=== PATIENT | female | born 1950 | race Caucasian/White ===

== ENCOUNTER 2023-11-10 10:38 | Outpatient (AMB) | payer MEDICARE, OTHER, SELFPAY ==
--- NOTE | 2023-11-10 10:49 | MHC.PC.OV ---
Vital Signs 11/10/23 10:53 Height 5 ft 3 in Weight 126 lb 8 oz BMI 22.4 BP 136/74 Blood Pressure Location Lt brachial Position Sitting Respiration 16 Pulse 84 Pulse Source Pulse Oximeter Temp 98 F Temp Source Oral Pulse Oximetry (%) 95 Oxygen Delivery Method Room Air Intake Visit Reasons: Ep/ heaviness in chest, throat/nose/ raw/ fatigued Intake Note: Heaviness in chest, nasal congestion, fatigue. sxs for 13 days. No testing done. Allergies tolmetin [From Tolectin] Allergy (Unknown, Verified 11/10/23 11:33) Hives Medication List - Last Reconciled 11/10/23 by Sil Harrell, EMISSIONS TESTING TECHNICIAN- cholecalciferol (vitamin D3) 25 mcg PO DAILY cyclosporine 0.05% (Restasis) drps ophthalmic (eye) BID Tobacco use date assessed: 11/10/23 HPI HPI Comments History of Present Illness Details 73-year-old female here today with complaints of raw sensation in her sinuses and back of throat associated with heaviness in chest. She reports that she has been sick for 13 days after exposure to her 4-month-old grandson who had a febrile URI. Her symptoms were initially sore throat, swollen glands and severe fatigue. Since onset these symptoms have resolved with use of DayQuil and NyQuil. 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 Denies fever, chills, shortness of breath, trouble swallowing. Awake alert NAD Sclera and conjunctiva clear bilat Nares patent, turbinates within normal limits, no sinus tenderness with palpation bilat TM intact and clear bilat, very trace fluid behind bilat TMs MMM, pharynx WNL RRR LS CTAB Plan: Reassurance offered today. However given the sinus complaints that started 13 days after an upper respiratory illness it could be that she does have an acute bacterial sinusitis however she presents well today. Given the holiday weekend I have sent in a prescription for Augmentin 1 tab p.o. b.i.d. x7 days. advised patient to only take this should she develop a fever, worsening of symptoms. Otherwise she should fully resolve without any further intervention. I will see her back in 1 week to follow up on this as well as to establish care. Sooner if needed. PFSH Social History Patient Tobacco Use Status: Never used Tobacco Review of Systems Const All systems reviewed & are unremarkable except as noted in HPI and below Physical exam (Primary Care) Vital Signs: Last Vital Signs Temp 98 F 11/10/23 10:53 Pulse 84 11/10/23 10:53 Resp 16 11/10/23 10:53 BP 136/74 11/10/23 10:53 Pulse Ox 95 11/10/23 10:53 Oxygen Delivery Method Room Air 11/10/23 10:53 BMI result Body Mass Index 22.4 Tobacco/Smoking Status: Tobacco use Status Tobacco use date assessed 11/10/23 11/10/23 10:57 Patient Tobacco Use Status Never used Tobacco 11/10/23 10:57 Assessment and Plan Assessment & Plan (1) URI (upper respiratory infection): Code(s): J06.9 - Acute upper respiratory infection, unspecified Qualifiers: URI type: unspecified URI Qualified Code(s): J06.9 - Acute upper respiratory infection, unspecified Medications: New amoxicillin-pot clavulanate 500-125 mg 1 tab PO BID 7 days 14 tabs 0RF Coding Level of Care Code Est Pt Level 3 (05480) Diagnoses Upper respiratory tract infection, unspecified type J06.9 URI type: unspecified URI
[2023-11-10 10:53] VITALS: BP 136/74; PULSE 84; RESP 16; TEMP 36.6; O2SAT 95; BMI 22.4
== END 2023-11-10 11:47 | disposition home or self-care (01) ==
PROVIDERS: PCP Internal Medicine; Visit Provider Nurse Practitioner Family
DX: J06.9 Acute upper respiratory infection, unspecified (principal)
CPT/HCPCS: 99213

== ENCOUNTER 2023-11-19 10:19 | Outpatient (AMB) | payer MEDICARE, OTHER, SELFPAY ==
--- NOTE | 2023-11-19 10:26 | A.OFFPC_ITS ---
Vital Signs 11/19/23 10:35 Weight 126 lb BP 108/64 Blood Pressure Location Lt brachial Position Sitting Respiration 16 Pulse 80 Pulse Source Pulse Oximeter Temp 97.8 F Temp Source Temporal Artery Scan Pulse Oximetry (%) 97 Oxygen Delivery Method Room Air Intake Visit Reasons: est care/ follow up walk in Intake Note: patient here for follow up and to establish care. Assistant Technician Required: No Is last menstrual period known: No Post menopausal: No Patient : No Allergies tolmetin [From Tolectin] Allergy (Unknown, Verified 11/19/23 13:52) Hives Medication List - Last Reconciled 11/19/23 by iSl Harrell, CONFERENCE AND EVENT ORGANISER- calcium citrate-vitamin D3 315 mg-6.25 mcg (250 unit) (Citracal + Vitamin D Maximum) 2 tabs PO DAILY cholecalciferol (vitamin D3) 25 mcg PO DAILY cyclosporine 0.05% (Restasis) drps ophthalmic (eye) BID Tobacco use date assessed: 11/10/23 Fall risk assessment: 1 Fall in past year Last assessed Fall Risk: 11/19/23 Dental Screening Dental Screen Date: 11/19/23 Did you have a dental visit in the last 12 months?: Yes Did you have a dental problem in the last 6 months where you did not have access to dental care?: No Was dental information given to patient?: Patient has dentist HPI HPI Comments History of Present Illness Details 73 y/o F with osteopenia, chronic post n devon drip, prolapsed bladder s/p cataract removal bilat, tonsillectomy, parathyroidectomy 2008, bilat meniscus repair Social: Retired teacher Health Maintenance: DEXA 1-2 years ago @ [facility] [place] * Mammo Colon Pap Specialists: Endo - cleared for f/u @ [facility] [place] [facility] Here today to establish care. I do not have any medical records as of this time. Release of information was signed today. Coming from [facility] practice. I met her initially about 1 week ago in the walk-in for complaints of a URI. She was given antibiotics to use only as needed. She reports that she did not need to use the antibiotics and then all of her symptoms recovered within 24 hours 100%. Was using a pessary for prolapsed bladder however this caused pain therefore she is stopped using it. Denies any active issues with prolapsed bladder. Take Ca and Vit D s/p parathyroidectomy; Endo encouraged tx for osteopenia, however she declined treatment, now SOAP MAKER will be managing this. Frayed rotator cuff L, started around Xmas time. rec'd cortisone shot with + effect. Still has ache and limited ROM @ times. Denies overt injury Chronic insomnia, tried trazadone w/o relief. Able to fall asleep. 3-4 nights out of 7 wakes for 2 hours and is able to fall back to sleep. Nothing overt causing her to wake. Emil could feel self getting sleepy after taking but was still waking in the middle of the night. Has not tried any other sleep aides; requesting ativan , as a friend uses this. Uses childrens benadryl 1/2 tab once per month to help chronic PND. Did trial flonase at one point. Did trial claritin at one time, made her spacy. In regards to mood, she reports that her mood overall is stable. She does have a son who is 30 years old who has bipolar disorder that is living with her. He was diagnosed about 12 years ago. She does admit a lot of worry and concern about her son. She does wonder if this plays any part into her insomnia. Exam: Awake alert NAD MMM Thyroid nonpalpable RRR LS CTAB No edema BLE Mood and affect appropriate Plan: Routine screening labs ordered today. Please get it done before the next office visit. Tried to use melatonin extended release 4-8 mg as needed to help the insomnia. Discouraged use of Ativan due to the Beers criteria. Could also consider mood playing a part in the insomnia and we can further investigate this if the melatonin is not effective for you. Continue calcium and vitamin-D supplements Return to office in a few months for routine follow up, sooner as needed. Message sent to office staff to try to obtain medical records. PFSH Family History Son FH: mental illness Social History Housing: House Patient Tobacco Use Status: Never used Tobacco e-Cigarette/Vaping Use: Never Used service: No Current occupational status: retired Current occupational exposures/hazards: No Cognitive needs: No Hearing needs: No Vision needs: No Questionnaire PHQ-9 Over the last 2 weeks, how often have you been bothered by any of the following problems? 1. Little interest or pleasure in doing things: not at all 2. Feeling down, depressed, or hopeless: not at all 3. Trouble falling or staying asleep, or sleeping too much: not at all 4. Feeling tired or having little energy: not at all 5. Poor appetite or overeating: not at all 6. Feeling bad about yourself - or that you are a failure or have let yourself or your family down: not at all 7. Trouble concentrating on things, such as reading the newspaper or watching television: not at all 8. Moving or speaking so slowly that other people could have noticed. Or the opposite - being so fidgety or restless that you have been moving around a lot more than usual: not at all 9. Thoughts that you would be better off or of hurting yourself in some way: not at all Total score: 0 Depression Screening Interpretation: Negative Depression Screening Done: Yes Source: Developed by Drs. Laz Chou, Benita Lugo, Sebastian Tinsley and colleagues, with an educational zaira from [employer]. Thrive Questionnaire Date Thrive assessed: 11/19/23 I am a: Patient What is your living situation today?: I have a steady place to live Within the past 12 months, did the food you bought not last and you didn't have the money to get more?: Never true Within the past 12 months, did you worry whether your food would run out before you got money to buy more?: Never true Do you have trouble paying for medicines?: No Do you have trouble getting transportation to medical appointments?: No Do you have trouble paying your heating and electricity bill?: No Do you have trouble taking care of your child, family member or friend?: No Do you have trouble with day-to-day activities such as bathing, preparing meals, shopping, managing finances, etc.?: No Are you currently unemployed and looking for a job?: No Are you interested in more education?: No Please select the resources that you would like help with: None Currently or been in a relationship where the following occur: No concerns reported THRIVE Score: 0 AUDIT C Alcohol Use Questionnaire (AUDIT-C) 1. How often do you have a drink containing alcohol?: Monthly or less 2. How many drinks containing alcohol do you have on a typical day when you are drinking?: 1 or 2 3. How often do you have six or more drinks on one occasion?: Never Total Score: 1 Score Reviewed/Action Taken: Yes SERGE-7 AMB Questionnaire SERGE-7 Date SERGE - 7 assessed: 11/19/23 Feeling nervous, anxious, or on edge: 0 = Not at all Not being able to stop or control worryin = Not at all Worrying too much about different things: 0 = Not at all Trouble relaxin = Not at all Being so restless that it is hard to sit still: 0 = Not at all Becoming easily annoyed or irritable: 0 = Not at all Feeling afraid as if something awful might happen: 0 = Not at all Total SERGE-7 score (0-4 normal; 5-9 mild; 10-14 moderate; 15-21 severe): 0 Source: Developed by Drs. Laz Chou, Benita Lugo, Sebastian Tinsley and colleagues, with an educational zaira from [employer]. SERGE-7 Assessment Billing SERGE-7 Assessment Tool: SERGE-7 Assessment 73824 Physical exam (Primary Care) Vital Signs: Last Vital Signs Temp 97.8 F 11/19/23 10:35 Pulse 80 11/19/23 10:35 Resp 16 11/19/23 10:35 BP 108/64 11/19/23 10:35 Pulse Ox 97 11/19/23 10:35 Oxygen Delivery Method Room Air 11/19/23 10:35 Tobacco/Smoking Status: Tobacco use Status Tobacco use date assessed 11/10/23 11/19/23 10:28 Patient Tobacco Use Status Never used Tobacco 11/19/23 10:28 e-Cigarette/Vaping Use Never Used 11/19/23 10:37 Depression Screening Interpretation: Negative Currently or been in a relationship where the following occur: No concerns reported Assessment and Plan Assessment & Plan (1) Osteopenia: Code(s): M85.80 - Other specified disorders of bone density and structure, unspecified site Qualifiers: Osteopenia location: unspecified Qualified Code(s): M85.80 - Other specified disorders of bone density and structure, unspecified site (2) S/P parathyroidectomy: Code(s): Z98.890 - Other specified postprocedural states; Z90.89 - Acquired absence of other organs (3) Insomnia: Code(s): G47.00 - Insomnia, unspecified Qualifiers: Insomnia type: unspecified Qualified Code(s): G47.00 - Insomnia, unspecified (4) Bladder prolapse, female, acquired: Code(s): N81.10 - Cystocele, unspecified (5) Post-nasal drip: Code(s): R09.82 - Postnasal drip Plan This note is constructed using voice recognition software. While every effort has been made to ensure accuracy in senior sales engineer, still errors may have been included Sometimes, these errors may affect the content or meaning of the given sentence . Total time spent caring for the patient today was 45 minutes. This includes time spent before the visit reviewing the chart, time spent during the visit, and time spent after the visit on documentation Orders: Orders Comprehensive Met. Panel Today G47.00 - Insomnia, unspecified, M85.80 - Other specified disorders of bone density and structure, unspecified site, Z90.89 - Acquired absence of other organs, Z98.890 - Other specified postprocedural states Lipid Panel Today G47.00 - Insomnia, unspecified, M85.80 - Other specified disorders of bone density and structure, unspecified site, Z90.89 - Acquired absence of other organs, Z98.890 - Other specified postprocedural states Microalbumin, Random (w Creat) Today G47.00 - Insomnia, unspecified, M85.80 - Other specified disorders of bone density and structure, unspecified site, Z90.89 - Acquired absence of other organs, Z98.890 - Other specified postprocedural states Vitamin D 1,25 dihydroxy Today G47.00 - Insomnia, unspecified, M85.80 - Other specified disorders of bone density and structure, unspecified site, Z90.89 - Acquired absence of other organs, Z98.890 - Other specified postprocedural states Complete Blood Count no Diff Today G47.00 - Insomnia, unspecified, M85.80 - Other specified disorders of bone density and structure, unspecified site, Z90.89 - Acquired absence of other organs, Z98.890 - Other specified postprocedural states IRON PROFILE Today G47.00 - Insomnia, unspecified, M85.80 - Other specified disorders of bone density and structure, unspecified site, Z90.89 - Acquired absence of other organs, Z98.890 - Other specified postprocedural states Hemoglobin A1c Today G47.00 - Insomnia, unspecified, M85.80 - Other specified disorders of bone density and structure, unspecified site, Z90.89 - Acquired absence of other organs, Z98.890 - Other specified postprocedural states TSH reflex Free T4 Today G47.00 - Insomnia, unspecified, M85.80 - Other specified disorders of bone density and structure, unspecified site, Z90.89 - Acquired absence of other organs, Z98.890 - Other specified postprocedural states Vitamin B12 and Folate Today G47.00 - Insomnia, unspecified, M85.80 - Other specified disorders of bone density and structure, unspecified site, Z90.89 - Acquired absence of other organs, Z98.890 - Other specified postprocedural states Patient Instructions: Use Melatonin ER 4-8 mg daily at night to help sleep, buy online. Coding Level of Care Code New Pt Level 4 (70984) Complex EM visit Add On G2211 Diagnoses Osteopenia, unspecified location M85.80 Osteopenia location: unspecified S/P parathyroidectomy Z98.890; Z90.89 Insomnia, unspecified type G47.00 Insomnia type: unspecified Bladder prolapse, female, acquired N81.10 Post-nasal drip R09.82 Additional Codes SERGE-7 Assessment Billing - SERGE-7 Assessment Tool: SERGE-7 Assessment [id number] ([id number])
[2023-11-19 10:35] VITALS: BP 108/64; PULSE 80; RESP 16; TEMP 36.6; O2SAT 97
== END 2023-11-19 11:29 | disposition home or self-care (01) ==
PROVIDERS: PCP Nurse Practitioner Family; Visit Provider Nurse Practitioner Family
DX: M85.80 Other specified disorders of bone density and structure, unspecified site (principal); Z98.890 Other specified postprocedural states; Z90.89 Acquired absence of other organs; G47.00 Insomnia, unspecified; N81.10 Cystocele, unspecified; R09.82 Postnasal drip
CPT/HCPCS: 99215; G2211

== ENCOUNTER 2024-01-28 08:23 | Outpatient (REF) | payer MEDICARE, OTHER, SELFPAY ==
[2024-01-28 11:47] LABS: Estimated Average Glucose 108 mg/dL; Hemoglobin A1c % 5.4 % (<6.0)
[2024-01-28 11:50] LABS: Hematocrit 38.6 % (37.0-47.0); Hemoglobin 13.1 g/dl (12.0-16.0); Mean Corpuscular HGB Conc 33.9 g/dl (31.0-35.0); Mean Corpuscular Hemoglobin 30.4 pg (27.0-33.0); Mean Corpuscular Volume 89.6 fL (80.0-98.0); Mean Platelet Volume 9.9 fL (9.4-12.3); Platelet Count 237 X10*3/uL (160-400); Red Blood Count 4.31 X10*6/uL (4.20-5.50); Red Cell Distribution Width 12.3 % (11.0-16.0); White Blood Count 5.6 X10*3/uL (4.8-10.8)
[2024-01-28 12:22] LABS: Creatinine Urine 89.05 mg/dL; Microalbum/Creatinine Ratio Ur 10.1 ug/mg cr (<30)
[2024-01-28 12:27] LABS: Alanine Aminotransferase 10 U/L (0-31); Albumin Level 4.2 g/dL (3.5-5.0); Alkaline Phosphatase 45 U/L (39-117); Anion Gap 10 (12-20); Aspartate Amino Transferase 14 U/L (5-31); Bilirubin Total 0.4 mg/dL (0.0-1.0); Blood Urea Nitrogen 22 mg/dL (9-16); Carbon Dioxide 28 mmol/L (22-29); Chloride 107 mmol/L (96-108); Cholesterol 199 mg/dL (<200); Estimated Glomerular Filt Rate > 60; Folate 5.8 ng/mL (> or = 4.0); Glucose Random 97 mg/dL (60-115); HDL Cholesterol 70 mg/dL (>40); Iron 94 mcg/dL (30-160); LDL Cholesterol Calculated 115 mg/dL (<100); Percent Iron Saturation 34 % (15-50); Potassium 4.2 mmol/L (3.3-5.1); Sodium 141 mmol/L (135-145); Total Iron Binding Capacity 280 mcg/dL (228-428); Total Protein 6.8 g/dL (6.5-8.0); Triglycerides 70 mg/dL (<150); Unsaturated Iron Binding 186 ug/dL; Vitamin B12 299 pg/mL (200-900)
[2024-01-28 12:44] LABS: TSH reflex Free T4 1.97 uIU/mL (0.32-4.0)
[2024-02-02 01:24] LABS: VITAMIN D (1,25 OH) D3 44 pg/mL; Vit D (1,25-Dihydroxy) Total 44 pg/mL (18-72); Vitamin D (1,25 OH) D2 <8 pg/mL
== END 2024-01-28 08:24 | disposition home or self-care (01) ==
LOC: HO.WFDLDS 08:23
PROVIDERS: Visit Provider Nurse Practitioner Family
DX: M85.80 Other specified disorders of bone density and structure, unspecified site (principal); Z98.890 Other specified postprocedural states; Z90.89 Acquired absence of other organs; G47.00 Insomnia, unspecified; Z13.1 Encounter for screening for diabetes mellitus
CPT/HCPCS: 36415; 80053; 80061; 82043; 82570; 82607; 82652; 82746; 83036; 83540; 84443; 85027

== ENCOUNTER 2024-02-03 08:57 | Outpatient (AMB) | payer MEDICARE, OTHER, SELFPAY ==
--- NOTE | 2024-02-03 09:13 | A.OFFPC_ITS ---
Vital Signs 02/03/24 09:18 Height 5 ft 3 in Weight 126 lb 4 oz BMI 22.4 BP 112/60 Blood Pressure Location Lt brachial Position Sitting Respiration 13 Pulse 94 Pulse Source Pulse Oximeter Temp 97.9 F Temp Source Oral Pulse Oximetry (%) 97 Oxygen Delivery Method Room Air Intake Visit Reasons: Fall fu labs and insomnia Intake Note: follow up on labs Allergies tolmetin [From Tolectin] Allergy (Unknown, Verified 02/03/24 09:45) Hives Medication List - Last Reconciled 02/03/24 by Sil Harrell, [facility]- calcium citrate-vitamin D3 315 mg-6.25 mcg (250 unit) (Citracal + Vitamin D Max imum) 2 tabs PO DAILY cholecalciferol (vitamin D3) 25 mcg PO DAILY cyclosporine 0.05% (Restasis) drps ophthalmic (eye) BID melatonin ER 5 mg PO BEDTIME Tobacco use date assessed: 11/10/23 Dental Screening Dental Screen Date: 11/19/23 HPI HPI Comments History of Present Illness Details 73 y/o F with osteopenia, chronic post n devon drip, prolapsed bladder, insomnia s/p cataract removal bilat, tonsillectomy, parathyroidectomy 2008, bilat meniscus repair Social: Retired teacher Health Maintenance: Bone density done 02/03/2022 showing osteoporosis. Of note she was on bisphosphonates for 8 years. Completing in 2011. Mammogram 04/06/23 which was normal;she did have a 0.7 cm simple cyst at the 6 o'clock position in the left breast 5 cm from the nipple in 2019. ObGyn will order 2023 Colonoscopy did show colon polyp as well as diverticulosis and hemorrhoids. This was done 06/25/2021. Repeat in 5 years recommended (2026) 2023 Flu & Covid will get; has already h ad Shingles, RSV, PCV Specialists: Endo - cleared for f/u @ [facility] [place] TECHN[employer]GRAM [employer]GER [facility] Here today for routine fu Insomnia: melatonin ER did not help. Still woke up 2am, felt relaxed but did not fall asleep. Is sleeping great however at this time, she did under go some stress. Dtr asked her to try CBD. Took 1 every night for 3 nights. She had horrible gastric distress. Googled s/e and that is #1 side effect. So stopped. Has tried other sleep aide in the past and did not work, unsure what it was, other than trazodone. Willing to try a sleep aide, prefers PRN Due for DEXA - ordered today, to be done at [facility]. I cc'd results to TECHNICAL PROGRAM MANAGER Left shoulder pain free, thinks holding her grandchild helped strengthen her arms. About 17lbs reviewed w/ her today: Labs from 01/28/2024 show a normal CBC normal electrolytes, renal function hemoglobin A1c 5.4%, iron profile, normal LFTs, total cholesterol of 199 LDL 115, triglycerides 70, HDL 70, B12 on the low end of normal 299, vitamin-D normal , normal TSH and folate, normal urine microalbumin creatinine ratio Exam: Awake alert NAD MMM Thyroid nonpalpable RRR LS CTAB No edema BLE Mood and affect appropriate Plan Add b12 1000 mcg Stop melatonin ER Start doxepin 3mg po QHS prn insomnia. Can titrate to 6mg if not effective. Asked she let me know. Cont all other meds Cont care w/ Team FU in May for sAWV, sooner prn This note is constructed using voice recognition software. While every effort has been made to ensure accuracy in cooperative education director, still errors may have been included Sometimes, these errors may affect the content or meaning of the given sentence . Total time spent caring for the patient today was 45 minutes. This includes time spent before the visit reviewing the chart, time spent during the visit, and time spent after the visit on documentation PFSH Family History Son FH: mental illness Social History Housing: House Patient Tobacco Use Status: Never used Tobacco e-Cigarette/Vaping Use: Never Used service: No Current occupational status: retired Current occupational exposures/hazards: No Cognitive needs: No Hearing needs: No Vision needs: No Questionnaire Thrive Questionnaire Date Thrive assessed: 11/19/23 AUDIT C Alcohol Use Questionnaire (AUDIT-C) 2. How many drinks containing alcohol do you have on a typical day when you are drinking?: 1 or 2 3. How often do you have six or more drinks on one occasion?: Never Total Score: 0 SERGE-7 AMB Questionnaire SERGE-7 Date SERGE - 7 assessed: 11/19/23 Source: Developed by DrsDarnell Chou, Benita Lugo, Sebastian Tinsley and colleagues, with an educational zaira from [employer]. Physical exam (Primary Care) Vital Signs: Last Vital Signs Temp 97.9 F 02/03/24 09:18 Pulse 94 02/03/24 09:18 Resp 13 02/03/24 09:18 BP 112/60 02/03/24 09:18 Pulse Ox 97 02/03/24 09:18 Oxygen Delivery Method Room Air 02/03/24 09:18 BMI result Body Mass Index 22.4 Tobacco/Smoking Status: Tobacco use Status Tobacco use date assessed 11/10/23 02/03/24 09:14 Patient Tobacco Use Status Never used Tobacco 02/03/24 09:14 e-Cigarette/Vaping Use Never Used 02/03/24 09:14 Thrive Assessment: Date of Thrive Assessment Date Thrive assessed 11/19/23 02/03/24 09:14 Assessment and Plan Assessment & Plan (1) Insomnia: Code(s): G47.00 - Insomnia, unspecified Qualifiers: Insomnia type: unspecified Qualified Code(s): G47.00 - Insomnia, unspecified (2) S/P parathyroidectomy: Code(s): Z98.890 - Other specified postprocedural states; Z90.89 - Acquired absence of other organs (3) Osteoporosis: Code(s): M81.0 - Age-related osteoporosis without current pathological fracture Qualifiers: Osteoporosis type: age-related Presence of current pathological fracture: without current pathological fracture Qualified Code(s): M81.0 - Age- related osteoporosis without current pathological fracture Orders: Orders XR DEXA axial skeleton Today M81.0 - Age-related osteoporosis without current pathological fracture, Z90.89 - Acquired absence of other organs, Z98.890 - Other specified postprocedural states Medications: New mecobalamin (vitamin B12) (B12 Active) 1,000 mcg PO DAILY 90 tabs 3RF doxepin Take within 30 minutes of bedtime, avoid meals within 3 hours of use for improved effectiveness 3 mg PO BEDTIME PRN 30 tabs 0RF sleep Coding Level of Care Code Est Pt Level 5 (04834) Complex EM visit Add On G2211 Diagnoses Insomnia, unspecified type G47.00 Insomnia type: unspecified S/P parathyroidectomy Z98.890; Z90.89 Age-related osteoporosis without current pathological fracture M81.0 Osteoporosis type: age-related Presence of current pathological fracture: without current pathological fracture
[2024-02-03 09:18] VITALS: BP 112/60; PULSE 94; RESP 13; TEMP 36.6; O2SAT 97; BMI 22.4
== END 2024-02-03 10:05 | disposition home or self-care (01) ==
PROVIDERS: PCP Nurse Practitioner Family; Visit Provider Nurse Practitioner Family
DX: G47.00 Insomnia, unspecified (principal); Z98.890 Other specified postprocedural states; Z90.89 Acquired absence of other organs; M81.0 Age-related osteoporosis without current pathological fracture

== ENCOUNTER → 2024-02-03 08:57 | Outpatient (BNVA) | payer MEDICARE, OTHER, SELFPAY | PROVIDERS: PCP Nurse Practitioner Family; Visit Provider Nurse Practitioner Family | DX: G47.00 Insomnia, unspecified (principal); M81.0 Age-related osteoporosis without current pathological fracture; Z98.890 Other specified postprocedural states; Z90.89 Acquired absence of other organs | CPT/HCPCS: 99212 ==

== ENCOUNTER 2024-05-31 08:03 | Outpatient (REF) | payer MEDICARE, OTHER, SELFPAY ==
[2024-05-31 11:49] LABS: Estimated Average Glucose 108 mg/dL; Hemoglobin A1C 125.4774 umol/L; Hemoglobin A1c % 5.4 % (<6.0); Total Hemoglobin (HGBA1C) 3495.3597 umol/L
[2024-05-31 12:09] LABS: Alanine Aminotransferase 12 U/L (0-31); Albumin Level 4.4 g/dL (3.5-5.0); Alkaline Phosphatase 49 U/L (39-117); Anion Gap 11 (12-20); Aspartate Amino Transferase 21 U/L (5-31); Bilirubin Total 0.5 mg/dL (0.0-1.0); Blood Urea Nitrogen 16 mg/dL (9-16); Calcium 9.6 mg/dL (8.4-10.2); Carbon Dioxide 30 mmol/L (22-29); Chloride 104 mmol/L (96-108); Cholesterol 197 mg/dL (<200); Estimated Glomerular Filt Rate > 60; Glucose Fasting 95 mg/dL (60-99); HDL Cholesterol 64 mg/dL (>40); LDL Cholesterol Calculated 122 mg/dL (<100); Sodium 141 mmol/L (135-145); Total Protein 7.2 g/dL (6.5-8.0); Triglycerides 59 mg/dL (<150)
[2024-05-31 12:14] LABS: TSH reflex Free T4 2.05 uIU/mL (0.32-4.0); Vitamin D 25-OH Total 107.1 ng/mL (>30)
[2024-05-31 12:22] LABS: Creatinine Urine 105.66 mg/dL; Microalbum/Creatinine Ratio Ur 6.6 ug/mg cr (<30)
== END 2024-05-31 08:04 | disposition home or self-care (01) ==
LOC: HO.WFDLDS 08:03
PROVIDERS: Visit Provider Nurse Practitioner Family
DX: Z00.00 Encounter for general adult medical examination without abnormal findings (principal); M81.0 Age-related osteoporosis without current pathological fracture; Z13.1 Encounter for screening for diabetes mellitus
CPT/HCPCS: 36415; 80053; 80061; 82043; 82306; 82570; 83036; 84443

== ENCOUNTER 2024-06-07 07:52 | Outpatient (AMB) | payer MEDICARE, OTHER, SELFPAY ==
--- NOTE | 2024-06-07 07:56 | AM.OFFVISMDC ---
Intake Vital Signs 06/07/24 08:04 Height 5 ft 3 in Weight 125 lb 4 oz BMI 22.2 BP 122/72 Blood Pressure Location Lt brachial Position Sitting Respiration 12 Pulse 85 Pulse Source Pulse Oximeter Temp 96.9 F Temp Source Oral Pulse Oximetry (%) 95 Oxygen Delivery Method Room Air Intake Visit Reasons: AWV MAY 2024 45 MIN Intake Note: annual awv Net Developer Consultant Required: No Allergies tolmetin [From Tolectin] Allergy (Unknown, Verified 06/07/24 08:23) Hives Medication List - Last Reconciled 06/07/24 by Sil Harrell, [facility]- calcium citrate-vitamin D3 315 mg-6.25 mcg (250 unit) (Citracal + Vitamin D Maximum) 2 tabs PO DAILY cholecalciferol (vitamin D3) 25 mcg PO DAILY cyclosporine 0.05% (Restasis) drps ophthalmic (eye) BID doxepin 3 mg PO BEDTIME PRN mecobalamin (vitamin B12) (B12 Active) 1,000 mcg PO DAILY risedronate mg PO Do you need a note to return to daycare/school/sports/work: No HPI HPI Comments History of Present Illness Details Here today for AWV. The Medicare Annual Wellness Visit (AWV) is a yearly appointment with a health professional to identify health risks and help reduce them and to create or update a personalized prevention plan. During a Medicare AWV, health professionals should also review any current opioid prescriptions, detect any cognitive impairment, and establish or update medical and family history. 73 y/o F with osteopenia, chronic post nasal drip, prolapsed bladder, insomnia s/p cataract removal bilat, tonsillectomy, parathyroidectomy 2008, bilat meniscus repair SurgHx: Y FHx: Y SocHx: Retired teacher, to [employer], has children Health Maintenance: See scanned preventative medicine assessment with personalized health plan and screening schedule. Bone density done 02/03/2022 showing osteoporosis. Repeat Fall 2023 Of note she was on bisphosphonates for 8 years. Completing in 2011. Mammogram 04/06/23 which was normal;she did have a 0.7 cm simple cyst at the 6 o'clock position in the left breast 5 cm from the nipple in 2019; Mammo 2023 Colonoscopy did show colon polyp as well as diverticulosis and hemorrhoids. This was done 06/25/2021. Repeat in 5 years recommended (2026) PAP active w/ outside OUTPLACEMENT CONSULTANT Vaccines flu 2023 up-to-date, zoster x2 up-to-date in 2019 Reports UTD on pneumococcal vaccines Needs PCV & Tdap AAA screen: NA EKG: Y done today WNL [place] of Care: Endo - cleared for f/u @ [facility] Patsy Woo * OUTPLACEMENT CONSULTANT Dr [facility] Visual Acuity: annual eye exams Hearing Screening: no concerns ACP: Y Dietary/Nutrition/Exercise Edu provided: Y During the course of the visit the patient was educated and counseled about appropriate screening and preventative services. Patient instructions were provided to the patient in written or electronic format. I have reviewed and verified the above information. Has complaint of soreness in the antoine area experienced primarily when wearing tight clothing such as skinny jeans, riding boots, or knee socks. The pain is noted upon pressing on the area, occurring mostly in the left antoine over the past few years. When wearing looser clothing like ankle socks or loose-fitting pants, she does not experience the soreness. There is no swelling associated with the soreness, and there is no pain unless pressure is applied. Furthermore, she reports a history of osteopenia which has recently progressed to osteoporosis as confirmed by a bone density test conducted between January 2024 and March 2022. She is set to begin a bone-building medication on June 11, managed by OUTPLACEMENT CONSULTANT A dditionally, the patient has experienced a fall incident without significant injury, attributing the event to slipping on a grape, with no ongoing issues related to that event. Insomnia is noted but manageable with intermittent use of doxepin, which has proven effective on occasion when needed. Social History - Exercises regularly and engages in physical activity, such as lifting her grandson who is about 20 pounds. - Resides with her and son, who has bipolar disorder. - Responsible for her own health maintenance, including keeping up with immunization schedules and health screenings. - Experiences anxiety related to her son's health condition. Results Labs from 05/31/2024 show normal electrolytes, normal renal function, normal fasting glucose of 95, hemoglobin A1c 5.4%, normal calcium, normal liver enzymes, total cholesterol of 197, triglycerides 59, LDL 122, HDL 64, vitamin-D 107.1, TSH 2.05, normal urine microalbumin creatinine ratio Discussion Notes I discussed with the patient the plan to monitor the antoine soreness unless changes such as swelling or increased pain occur, at which point vascular ultrasounds could be pursued. We talked about her transition from osteopenia to osteoporosis and explained the start of bone-building medication. The tetanus, diphtheria, and pertussis (Tdap) vaccine were updated today. We reviewed her lab results, which were within normal range. The patient is to follow up annually unless additional concerns arise. Patient Instructions - Begin prescribed bone-building medication as planned on June 11. - Monitor for changes in antoine soreness, including swelling or increased pain. - Maintain regular physical activity, such as lifting without over-exertion. - Continue with regular health maintenance screenings and immunizations. - Schedule follow-up if experiencing new or worsening symptoms. Plan - Update tetanus immunization with Tdap administered today. - Monitor antoine soreness for any changes; consider vascular ultrasound should symptoms escalate. - Begin osteoporosis treatment with bone-building medications as previously prescribed. - Continue intermittent use of Doxepin for insomnia as needed, ensuring rest periods of around 6 hours. - Annual follow-up for wellness assessment unless new issues develop. Patient was informed and verbally consented to the use of an ambient scribe for clinic note documentation during this visit. An additional 30 minutes was spent addressing the problem(s) noted at todays visit. This includes time spent before the visit reviewing the chart, time spent during the visit, and time spent after the visit on documentation reviewing laboratory results, diagnostic imaging, medications, performing a medically necessary evaluation, counseling on diagnoses, care coordination, ordering appropriate tests, ordering appropriate medications, review of tests performed by other providers, reporting test results with the patient, communication with other healthcare providers. PFSH Family History Son FH: mental illness Social History Housing: House Patient Tobacco Use Status: Never used Tobacco e-Cigarette/Vaping Use: Never Used service: No Current occupational status: retired Current occupational exposures/hazards: No Cognitive needs: No Hearing needs: No Vision needs: No Questionnaire Medicare Wellness Checkup What [age] What gender do you identify with?: female During the past 4 weeks, how much have you been bothered by emotional problems such as feeling anxious, depressed, irritable, sad or downhearted, and blue?: not at all During the past 4 weeks, has your physical & emotional health limited your social activities with family, friends, neighbors, or groups?: not at all During the past 4 weeks, how much bodily pain have you generally had?: no pain During the past 4 weeks, was someone available to help you if you needed & wanted help?: yes, as much as I wanted During the past 4 weeks, what was the hardest physical activity you could do for at least 2 minutes?: heavy Can you get to places out of walking distance without help? (For eg., can you travel alone on buses, taxis or drive your car?): Yes Can you go shopping for groceries or clothes without someone's help?: Yes Can you prepare your own meals?: Yes Can you do your housework without help?: Yes Because of any health problems, do you need the help of another person with your personal care needs such as eating, bathing, dressing or getting around the house?: No Can you handle your own money without help?: Yes During the past 4 weeks, how would you rate your health in general?: excellent During the past 4 weeks how have things been going for you?: very well; could hardly better Are you having difficulties driving your car?: no Do you always fasten your seat belt when you are in a car?: yes, usually During past 4 weeks, have you been bothered by the following: never: Falling or dizzy when standing up, Sexual problems?, Trouble eating well?, Teeth or denture problems? and Problems using the telephone? and seldom: Tiredness or fatigue? (using doxepin sparingly with + effect; stays up later 11pm and sleep about 5-6 hours w/o meds ) Have you fallen 2 or more times in the past year?: No Are you afraid of falling?: Yes Are you a smoker?: no During the past 4 weeks, how many drinks of wine, beer, or other alcoholic beverages did you have?: no alcohol at all Do you exercise for about 20 minutes 3 or more times a week?: yes, all the time Have you been given information to help with the following?: no: Hazards in your house that might hurt you? and no: Keeping track of your medications? How often do you have trouble taking medicines the way you have been told to take them?: I always take medicine as prescribed How confident are you that you can control & manage most of your health problems?: very confident What is your race?: White Activity of Daily Living Bathing - sponge bath, tub bath or shower: receives no assistance (gets in/out by self, if usual bathing means Dressing - getting clothes from closets & drawers, including inner/outer garments & fasteners.: gets clothes & gets completely dressed without help Toileting - going to the 'toilet room' for urine/bowel elimination & cleaning self/arranging clothes: goes to toilet room, cleans self, arranges clothes without help Transfer: moves in & out of bed and chair without help (may use support object) Continence: controls urination/bowel movements completely by self Feeding: feeds self without help Total Score: 0 Information obtained from: patient Using telephone: independent Traveling: independent Shopping: independent Preparing meals: independent Housework: independent Taking medicine: independent Managing money: independent PHQ-9 Over the last 2 weeks, how often have you been bothered by any of the following problems? [id number] - PHQ-9 Billing: Patient declined-do not bill Source: Developed by Drs. Laz Chou, Benita Lugo, Sebastian Tinsley and colleagues, with an educational zaira from [employer]. Physical Exam Vital Signs: Last Vital Signs Temp 96.9 F 06/07/24 08:04 Pulse 85 06/07/24 08:04 Resp 12 06/07/24 08:04 BP 122/72 06/07/24 08:04 Pulse Ox 95 06/07/24 08:04 Oxygen Delivery Method Room Air 06/07/24 08:04 BMI result Body Mass Index 22.2 Office Procedures EKG [id number], Complete Vision Screening Right Eye: 20/25 Left Eye: 20/25 Bilateral: 20/20 Color: Pass 00066 - Vision Screening Immunizations Boostrix Tdap 2.5 Lf unit-8 mcg-5 Lf/0.5 mL intramuscular syringe Performing Provider: MINGO Mcnamara Performing Location: [facility] [place] [facility] Administered by: Eugenia Fabian RN on 06/07/24 09:03 Dose Route Admin Location Dispensed Lot Number Expiration Date NDC Assistant Analyst 0.5 mL IM Left Deltoid 0.5 mL [id number] 06/01/26 [id number] [employer] VIS Given Date VIS Provided VIS Publication Date 06/07/24 Single Vaccine 20 Eligibility Eligibility Date Funding Source Not [facility] Eligible 06/07/24 Private Assessment & Plan Assessment & Plan (1) Encounter for subsequent annual wellness visit (AWV) in Medicare patient: Code(s): Z00.00 - Encounter for general adult medical examination without abnormal findings (2) Bilateral leg pain: Comment: lower legs, L more than R Code(s): M79.604 - Pain in right leg; M79.605 - Pain in left leg (3) Osteoporosis: Code(s): M81.0 - Age-related osteoporosis without current pathological fracture Qualifiers: Osteoporosis type: age-related Presence of current pathological fracture: without current pathological fracture Qualified Code(s): M81.0 - Age-related osteoporosis without current pathological fracture (4) S/P parathyroidectomy: Code(s): Z98.890 - Other specified postprocedural states; Z90.89 - Acquired absence of other organs (5) Insomnia: Code(s): G47.00 - Insomnia, unspecified Qualifiers: Insomnia type: unspecified Qualified Code(s): G47.00 - Insomnia, unspecified (6) Need for Tdap vaccination: Code(s): Z23 - Encounter for immunization Plan . Orders: Orders TDaP Immunization Today Z23 - Encounter for immunization Patient Instructions: Health screenings for women You should visit your health care provider from time to time, even if you are healthy. The purpose of these visits is to: Screen for medical issues Assess your risk for future medical problems Encourage a healthy lifestyle Update vaccinations and other preventive care services Help you get to know your provider in case of an illness Information Even if you feel fine, you should still see your provider for regular checkups. These visits can help you avoid problems in the future. For example, the only way to find out if you have high blood pressure is to have it checked regularly. High blood sugar and high cholesterol levels also may not have any symptoms in the early stages. A simple blood test can check for these conditions. There are specific times when you should see your provider or receive specific health screenings. The [place] Preventive Services Task Force publishes a list of recommended screenings. Below are screening guidelines for women ages 18 to 39. BLOOD PRESSURE SCREENING Your blood pressure should be checked at least once every 3 to 5 years if: Your blood pressure is in the normal range (top number less than 120 mm Hg and bottom number less than 80 mm Hg) You don't have risk factors for high blood pressure Ask your provider if you need your blood pressure checked more often if: The top number is 120 to 129 mm Hg or the bottom number is 70 to 79 mm Hg You have diabetes, heart disease, kidney problems, are overweight, or have certain other health conditions You have a first-degree relative with high blood pressure You are Black You had high blood pressure during a If the top number is 130 mm Hg or greater or the bottom number is 80 mm Hg or greater, this is considered stage 1 hypertension. Schedule an appointment with your provider to learn how you can reduce your blood pressure. Watch for blood pressure screenings in your area. Ask your provider if you can stop in to have your blood pressure checked. BREAST CANCER SCREENING Experts do not agree about the benefits of breast self-exams in finding breast cancer or saving lives. Talk to your provider about what is best for you. A screening mammogram is not recommended for most women under age 40. Your provider may discuss and recommend mammograms, MRI scans, or ultrasounds if you have an increased risk for breast cancer, such as: A mother or sister who had breast cancer at a young age (most often starting screening earlier than the age the close relative was diagnosed) You carry a high-risk genetic marker CERVICAL CANCER SCREENING Cervical cancer screening should start at age 21 years unless your provider advises otherwise. After the first test: Women ages 21 through 29 should have a Pap test every 3 years. Exoprts do not agree on whether HPV testing is recommended for this age group. Women ages 30 through 65 should be screened with either a Pap test every 3 years or the HPV test every 5 years or both tests every 5 years (called cotesting ). Women who have been treated for precancer (cervical dysplasia) should continue to have Pap tests for 20 years after treatment or until age 65, whichever is longer. If you have had your uterus and cervix removed (total hysterectomy), and you have not been diagnosed with cervical cancer or precancer (high grade cervical neoplasia), you do not need cervical cancer screening. CHOLESTEROL SCREENING Cholesterol screening should begin at: Age 45 for women with no known risk factors for coronary heart disease Age 20 for women with known risk factors for coronary heart disease Repeat cholesterol screening should take place: Every 5 years for women with normal cholesterol levels More often if changes occur in lifestyle (including weight gain and diet) More often if you have diabetes, heart disease, kidney problems, or certain other conditions DIABETES SCREENING You should be screened for diabetes starting at age 35 and then repeated every 3 years if you have no risk factors for diabetes. Screening may need to start earlier and be repeated more often if you have other risk factors for diabetes, such as: You have a first degree relative with diabetes. You are overweight or have obesity. You have high blood pressure, prediabetes, or a history of heart disease. Screening for diabetes should be done if you are planning to become and you are overweight and have other risk factors such as high blood pressure. DENTAL EXAM Go to the dentist once or twice every year for an exam and cleaning. Your dentist will evaluate if you need more frequent visits. EYE EXAM Have an eye exam every 5 to 10 years before age 40. If you have vision problems, have an eye exam every 2 years or more often if recommended by your provider. You should have an eye exam that includes an examination of your retina (back of your eye) at least every year if you have diabetes. IMMUNIZATIONS Commonly needed vaccines include: Flu shot: get one every year. COVID-19 vaccine: ask your provider what is best for you. Tetanus-diphtheria and acellular pertussis (Tdap) vaccine: have one at or after age 19 as one of your tetanus-diphtheria vaccines if you did not receive it as an adolescent. Tetanus-diphtheria: have a booster (or Tdap) every 10 years. Varicella vaccine: receive 2 doses if you never had chickenpox or the varicella vaccine. Hepatitis B vaccine: receive 2, 3, or 4 doses, depending on your exact circumstances. Measles, mumps, and rubella (MMR) vaccine: receive 1 to 2 doses if you are not already immune to MMR. Your provider can tell you if you are immune. Ask your provider about the human papillomavirus (HPV) vaccine if: You have not received the HPV vaccine in the past You have not completed the full vaccine series (you should catch up on this shot) Ask your provider if you should receive other immunizations if you have certain health problems that increase your risk for some diseases such as pneumonia. INFECTIOUS DISEASE SCREENING Women who are sexually active should be screened for chlamydia and gonorrhea up until age 25. Women 25 years and older should be screened for chlamydia and gonorrhea if at high risk. Screening for hepatitis C: All adults ages 18 to 79 should get a one-time test for hepatitis C. people should be screened at every . Screening for human immunodeficiency virus (HIV): All people ages 15 to 65 should get a one-time test for HIV. Depending on your lifestyle and medical history, you may also need to be screened for infections such as syphilis and HIV, as well as other infections. PHYSICAL EXAM All adults should visit their provider from time to time, even if they are healthy. The purpose of these visits is to: Screen for disease Assess your risk of future medical problems Encourage a healthy lifestyle Update your vaccinations and other preventive care services Maintain a relationship with a provider in case of an illness Your height, weight, and BMI should be checked at every exam. During your exam, your provider may ask you about: Depression and anxiety Diet and exercise Alcohol and tobacco use Safety issues, such as using seat belts, smoke detectors, and intimate partner violence Your medicines and risk for interactions SKIN SELF-EXAM Your provider may check your skin for signs of skin cancer, especially if you're at high risk, such as if you: Have had skin cancer before Have close relatives with skin cancer Have a weakened immune system OTHER SCREENING Talk with your provider about colon cancer screening if you have a strong family history of colon cancer or polyps, or if you have had inflammatory bowel disease or polyps yourself. Routine bone density screening of women under 40 is not recommended. Quality Reporting (2020) Adult ([facility] 138/07/02/68) Smoking risk assessment performed?: Yes Patient Tobacco Use Status: Never used Tobacco Depression screening performed: Yes Screen Results: Yes Negative screen Systolic BP not done?: No Diastolic BP not done?: No BMI screening not done: No Sexual Activity Screening ([facility] 153) Sexually active?: Yes Immunizations ([facility] 147, 117) Annual Influenza Vaccine: Yes Measles Antibody Test: No Mumps Antibody Test: No Rubella Antibody Test: No Varicella Antibody Test: No Anti Hepatitis A IgG Antigen test: No Anti Hepatitis B Virus Surface Ab test: No Fall Risk Screening ([facility] 139) Last assessed Fall Risk: 06/07/24 Fall risk assessment: 1 Fall in past year (slip on a grape ) Dementia Assessment ([facility] 149) Cognitive assessment recorded: Yes Assessment of cognition with standardized tool: Yes (2/8 on 6 CIT ) Ophthalmol:Cataracts Visual Acuity (133) Visual acuity exam performed: Yes (see results) Coding Level of Care Code Medicare Subsequent (G0439) Est Pt Level 4 (30706) Diagnoses Encounter for subsequent annual wellness visit (AWV) in Medicare patient Z00.00 Bilateral leg pain M79.604; M79.605 Age-related osteoporosis without current pathological fracture M81.0 Osteoporosis type: age-related Presence of current pathological fracture: without current pathological fracture S/P parathyroidectomy Z98.890; Z90.89 Insomnia, unspecified type G47.00 Insomnia type: unspecified Need for Tdap vaccination Z23 CPT Codes Advance Care Planning - Time spent: 1-15 minutes, not on file ([id number]) EKG - CPT: [id number], Complete ([id number]) Vision Screening - Vision Screenin - Vision Screening ([id number]) Advance Care Planning Advance Care Planning discussion: Exists, not on file Date of discussion: 06/07/24 Forms completed: Health Care Proxy, MOLST and Living will Time spent: 1-15 minutes, not on file Actual minutes spent: 5
[2024-06-07 08:04] VITALS: BP 122/72; PULSE 85; RESP 12; TEMP 36.1; O2SAT 95; BMI 22.2
== END 2024-06-07 09:00 | disposition home or self-care (01) ==
PROVIDERS: PCP Nurse Practitioner Family; Visit Provider Nurse Practitioner Family
DX: Z00.00 Encounter for general adult medical examination without abnormal findings (principal); M79.604 Pain in right leg; M79.605 Pain in left leg; M81.0 Age-related osteoporosis without current pathological fracture; Z98.890 Other specified postprocedural states; Z90.89 Acquired absence of other organs; G47.00 Insomnia, unspecified; Z23 Encounter for immunization

== ENCOUNTER → 2024-06-07 07:52 | Outpatient (BNVA) | payer MEDICARE, OTHER, SELFPAY | PROVIDERS: PCP Nurse Practitioner Family; Visit Provider Nurse Practitioner Family | DX: Z00.00 Encounter for general adult medical examination without abnormal findings (principal); M81.0 Age-related osteoporosis without current pathological fracture; G47.00 Insomnia, unspecified; Z23 Encounter for immunization; Z98.890 Other specified postprocedural states; Z90.89 Acquired absence of other organs | CPT/HCPCS: 90471; 90715; 93005; 99212 ==

== ENCOUNTER 2025-03-14 13:35 | Outpatient (AMB) | payer MEDICARE, OTHER, SELFPAY ==
--- NOTE | 2025-03-14 13:49 | A.OFFPC_ITS ---
Vital Signs 3 03/14/25 13:54 Height 5 ft 3 in Weight 121 lb 4 oz BMI 21.5 BP 132/70 Blood Pressure Location Lt brachial Position Sitting Respiration 13 Pulse 82 Pulse Source Pulse Oximeter Temp 97.2 F Temp Source Oral Pulse Oximetry (%) 99 Oxygen Delivery Method Room Air Intake Visit Reasons: ED Follow-up /[facility] /03-01 Intake Note: [facility] ED follow up Sample Wrapper Required: No Allergies tolmetin (From Tolectin) Allergy (Unknown, Verified 03/14/25 14:04) Hives Medication List - Last Reviewed 03/14/25 by Kenya Hui MA amoxicillin-pot clavulanate 500-125 mg 1 tab PO BID calcium citrate-vitamin D3 315 mg-6.25 mcg (250 unit) (Citracal + Vitamin D Maximum) 2 tabs PO DAILY cholecalciferol (vitamin D3) 25 mcg PO DAILY cyclosporine 0.05% (Restasis) drps ophthalmic (eye) BID doxepin 3 mg PO BEDTIME PRN mecobalamin (vitamin B12) (B12 Active) 1,000 mcg PO DAILY risedronate mg PO Tobacco use date assessed: 03/14/25 Fall risk assessment: No Falls in past year Last assessed Fall Risk: 03/14/25 Dental Screening Dental Screen Date: 03/14/25 Did you have a dental visit in the last 12 months?: Yes Did you have a dental problem in the last 6 months where you did not have access to dental care?: No Was dental information given to patient?: Patient has dentist HPI HPI Comments 2 History of Present Illness0 Details 74 y/o F with osteopenia, chronic post n devon drip, prolapsed bladder, insomnia, diverticulosis s/p cataract removal bilat, tonsillectomy, parathyroidectomy 2008, bilat meniscus repair SurgHx: Y FHx: Y SocHx: Retired teacher, to [employer], has children Health Maintenance: See scanned preventative medicine assessment with personalized health plan and screening schedule. Bone density done 02/03/2022 showing osteoporosis. Repeat Fall 2023 Of note she was on bisphosphonates for 8 years. Completing in 2011. Mammogram 04/06/23 which was normal;she did have a 0.7 cm simple cyst at the 6 o'clock position in the left breast 5 cm from the nipple in 2019; Mammo 2023 Colonoscopy did show colon polyp as well as diverticulosis and hemorrhoids. This was done 06/25/2021. Repeat in 5 years recommended (2026) PAP active w/ outside [facility] Vaccines flu 03/14/25, zoster x2 up-to-date in 2019 Reports UTD on pneumococcal vaccines History of Present Illness The patient is a 74-year-old female presenting for a hospital discharge follow- up for acute diverticulitis. Acute Diverticulitis: - The patient was diagnosed with acute d iverticulitis at [facility] on March 01 after presenting to the ER. - Symptoms began suddenly the night of O ctober with severe abdominal pain, which she compared to labor pains, and a loss of appetite. - She experienced constipation for four days prior to seeking care. - A CT scan confirmed moderate sigmoid d iverticulitis with significant fat stranding and surrounding edema. - She was treated with a 10-day course o f Augmentin, which she has completed. - Her abdominal pain resolved within 24 hours of starting the antibiotic. - She experienced significant diarrhea w hile on the antibiotic, which resolved the day after she stopped the medication. - Post-discharge, she followed a clear l iquid diet for three days and has been on a low-fiber diet for 10 days, consuming foods like baked chicken, rice, scrambled eggs, and white toast. - Her bowel movements are returning to h er baseline of three per morning, though stools are currently semi-solid. - Her last colonoscopy in June 2021 showed diverticulosis and polyps, with the next one due in 2026. Syncope and near syncope: - On February 13, the patient experience d an episode of sudden, profuse sweating and severe dizziness after standing for about 45 minutes at an event. - She felt she was going to pass out, we nt outside, sat down, and began vomiting. - The episode resolved completely within 10 to 15 minutes, and she has not had a similar event before or since. - She denies feeling anxious or nervous during the event and had consumed food and drink normally, though she ate a light lunch that day. Hyperlipidemia: - Recent blood work showed an LDL of 122 mg/dL (up from 115 previously) and a cardioprotective HDL of 64 mg/dL. - A recent CT scan noted incidental find ings of mild vascular calcifications in the abdominal blood vessels and a 1 cm peripherally calcified splenic artery aneurysm, indicating it is an old finding. - The patient denies any history of ches t pain on exertion or arm pain. Insomnia: - The patient reports persistent difficu lty with sleep maintenance. - She tried doxepin, which helped with s leep onset but did not keep her asleep and caused morning grogginess, leading her to discontinue it. - She infrequently uses Children's Benad ryl or lorazepam, which she finds effective for achieving a full night's sleep. Past Medical History - Diverticulosis, noted on 2021 colonosc opy - History of colonic polyps - Osteoporosis, on medication for approx imately one year - Small umbilical hernia - Mild abdominal aortic calcifications - Calcified splenic artery aneurysm - Insomnia - Dry Eyes, treated with Restasis - History of low blood pressure Review of Systems - Constitutional: Reports recent weight loss. - Cardiovascular: Denies chest pain, inc luding with exertion. - Gastrointestinal: Reports recent histo ry of severe abdominal pain, constipation, and diarrhea, all of which have resolved. - Reports an episode of vomiting on . - Currently reports semi-solid stools. - Denies current abdominal pain. - Neurological: Reports an episode of se tripp dizziness and near-syncope a few weeks ago. - Musculoskeletal: Reports chronic low b ack pain, which she believes is muscular. - Denies arm pain. - Psychiatric: Reports anxiety about nee ding immediate bathroom access when out. - Reports difficulty with sleep maintena nce. Physical Exam General: Well developed, well nourished, in no acute distress. Appears stated age. Head: Normocephalic, atraumatic. Eyes: Pupils are equal, round and reactive to light and accommodation. Conjunctivae are clear. Vision grossly normal. Lungs: Clear to auscultation bilaterally. No rales, rhonchi or wheeze noted. Good air flow in all zavala. Heart: Regular rate and rhythm. No murmurs, click, rubs or gallops are noted. Abdomen: Bowel sounds present in all quadrants. The abdomen is soft, nontender, with no masses or organomegaly noted. Musculoskeletal: Joints are nontender, without swelling, redness, or effusions. Pulses: Peripheral pulses are equal and palpable bilaterally. Extremities: No clubbing, cyanosis nor edema is noted. Psych: Mood and affect appropriate. Diagnostic results Results - CT Abdomen/Pelvis (03/01/2023): Modera te sigmoid diverticulitis with significant fat stranding and surrounding edema. - Incidental findings included a small u mbilical hernia, mild vascular calcifications of the abdominal blood vessels, and a 1 cm peripherally calcified splenic artery aneurysm. - Labs: Recent lipid panel showed LDL 12 2 mg/dL and HDL 64 mg/dL. - ER bloodwork was noted to be good. - Procedures: Last colonoscopy on 2021 revealed diverticulosis and polyps. Medical Decision Making The patient is a 74-year-old female who presents for a hospital follow-up after an admission for acute diverticulitis. She has completed her course of antibiotics and her symptoms have fully resolved. Her diet progression is symptom-based, and she can gradually reintroduce fiber and her normal foods. The pelaez to preventing future flares is to avoid constipation. The presyncopal episode in early February, associated with vomiting, may have caused dehydration which could have been a precipitating factor for the constipation and subsequent diverticulitis. We reviewed the incidental CT findings of mild abdominal aortic calcifications and a calcified splenic artery aneurysm, along with her recent LDL of 122 mg/dL. While a full cardiac workup is an option, we will defer this for now and monitor for symptoms. I recommended initiating unflavored Metamucil, once she has returned to a normal diet, as it can both aid in preventing constipation and help lower cholesterol. Moving up her next colonoscopy, due in 2026, is not deemed necessary at this time as she responded well to therapy and had no signs of major complications. She has discontinued doxepin for insomnia due to side effects. She will receive her influenza vaccine today, and labs will be ordered to be completed before her well visit in May. Plan 1. Acute Diverticulitis - The patient has completed a 10-day cou rse of Augmentin with resolution of symptoms. - Advised to slowly reintroduce regular foods and fiber back into her diet, guided by her symptoms. - Emphasized that preventing constipatio n is pelaez to reducing the risk of recurrence. - Discussed that moving up her colonosco py is not necessary at this time, as she responded well to treatment. 2. Hyperlipidemia And Atherosclerosis - Reviewed recent LDL of 122 mg/dL and i ncidental CT findings of mild aortic calcification and a calcified splenic artery aneurysm. - Recommended starting Metamucil (unflav ored psyllium fiber) after her diet returns to normal to help lower cholesterol and prevent constipation. - She should start with a teaspoon and t itrate up as tolerated. - Advised to monitor for cardiovascular symptoms such as chest pain or exertional intolerance and to report them if they occur. - Will recheck lipids with labs schedule d before her May well visit. 3. Insomnia - Patient has stopped taking doxepin due to side effects and lack of efficacy for sleep maintenance. - No new pharmacologic interventions aylin nned at this time. 4. Health Maintenance - Administered influenza vaccine in offi ce. - Placed orders for pre-visit lab work t o be completed before her well visit in early May. Patient Instructions - You can gradually start adding your re gular foods back into your diet. - Introduce foods slowly so you can iden tify if any particular food bothers your stomach. - The most important thing is to avoid g etting constipated and to stay well- hydrated. - Once you have been back on your normal diet for about two weeks, you can start taking Metamucil. - Start with one teaspoon in water and s lowly increase the dose. - The unflavored kind is best for helpin g with cholesterol. - Let us know immediately if you experie nce any chest pain, arm pain, or a change in your ability to do normal activities. - We gave you a flu shot today. - I have put in orders for blood work fo r you to complete before your next appointment in May. - To make an appointment or ask a questi on, please send a message through the patient portal and select my name. Consent The patient was offered and verbally consented to receiving the influenza vaccine during the visit. Patient was informed and verbally consented to the use of an ambient scribe for clinic note documentation during this visit. Total time spent caring for the patient today was 45 minutes. This includes time spent before the visit reviewing the chart, time spent during the visit, and time spent after the visit on documentation, reviewing laboratory results, diagnostic imaging, medications, performing a medically necessary evaluation, counseling on diagnoses, care coordination, ordering appropriate tests, ordering appropriate medications, review of tests performed by other providers, reporting test results with the patient, communication with other healthcare providers. [facility] Family History Son FH: mental illness Social History Housing: House Patient Tobacco Use Status: Never used Tobacco e-Cigarette/Vaping Use: Never Used service: No Current occupational status: retired Current occupational exposures/hazards: No Cognitive needs: No Hearing needs: No Vision needs: No Questionnaire PHQ-9 Over the last 2 weeks, how often have you been bothered by any of the following problems? 1. Little interest or pleasure in doing things: not at all 2. Feeling down, depressed, or hopeless: not at all 3. Trouble falling or staying asleep, or sleeping too much: not at all 4. Feeling tired or having little energy: not at all 5. Poor appetite or overeating: not at all 6. Feeling bad about yourself - or that you are a failure or have let yourself or your family down: not at all 7. Trouble concentrating on things, such as reading the newspaper or watching television: not at all 8. Moving or speaking so slowly that other people could have noticed. Or the opposite - being so fidgety or restless that you have been moving around a lot more than usual: not at all 9. Thoughts that you would be better off or of hurting yourself in some way: not at all Total score: 0 Depression Screening Interpretation: Negative Depression Screening Done: Yes 05872 - PHQ-9 Billing: Yes Source: Developed by Drs. Laz Chou, Benita Lugo, Sebastian Tinsley and colleagues, with an educational zaira from [employer]. Thrive Questionnaire Date Thrive assessed: 03/14/25 I am a: Patient What is your living situation today?: I have a steady place to live Within the past 12 months, did the food you bought not last and you didn't have the money to get more?: Never true Within the past 12 months, did you worry whether your food would run out before you got money to buy more?: Never true Do you have trouble paying for medicines?: No Do you have trouble getting transportation to medical appointments?: No Do you have trouble paying your heating and electricity bill?: No Do you have trouble taking care of your child, family member or friend?: No Do you have trouble with day-to-day activities such as bathing, preparing meals, shopping, managing finances, etc.?: No Are you currently unemployed and looking for a job?: No Are you interested in more education?: No THRIVE Score: 0 SERGE-7 AMB Questionnaire SERGE-7 Date SERGE - 7 assessed: 03/14/25 Feeling nervous, anxious, or on edge: 0 = Not at all Not being able to stop or control worryin = Not at all Worrying too much about different things: 0 = Not at all Trouble relaxin = Not at all Being so restless that it is hard to sit still: 0 = Not at all Becoming easily annoyed or irritable: 0 = Not at all Feeling afraid as if something awful might happen: 0 = Not at all Total SERGE-7 score (0-4 normal; 5-9 mild; 10-14 moderate; 15-21 severe): 0 Source: Developed by Drs. Laz Chou, Benita Lugo, Sebastian Tinsley and colleagues, with an educational zaira from [employer]. SERGE-7 Assessment Billing SERGE-7 Assessment Tool: SERGE-7 Assessment 51987 Physical exam (Primary Care) Vital Signs: Last Vital Signs Temp 97.2 F 03/14/25 13:54 Pulse 82 03/14/25 13:54 Resp 13 03/14/25 13:54 BP 132/70 03/14/25 13:54 Pulse Ox 99 03/14/25 13:54 Oxygen Delivery Method Room Air 03/14/25 13:54 BMI result Body Mass Index 21.5 Tobacco/Smoking Status: Tobacco use Status Tobacco use date assessed 03/14/25 03/14/25 13:53 Patient Tobacco Use Status Never used Tobacco 03/14/25 13:53 e-Cigarette/Vaping Use Never Used 03/14/25 13:53 PHQ-9: PHQ-9 Score PHQ-9: Total score 0 03/14/25 14:03 Depression Screening Interpretation: Negative Thrive Assessment: Date of Thrive Assessment Date Thrive assessed 03/14/25 03/14/25 13:53 Office Procedures Flu Questionnaire Does the patient have a severe egg allergy?: No Does the patient have severe life threatening allergies?: No Does the patient have a fever or illness today?: No Has the patient ever had Guillain-Turkey Syndrome?: No Has the patient ever had any past reaction to a flu shot?: No Immunizations Fluarix [id number] (PF) 45 mcg (15 mcg x 3)/0.5 mL IM syringe Performing Provider: MINGO Mcnamara Performing Location: [facility] Administered by: Kenya Hui MA on 03/14/25 14:38 2 Dose Route Admin Location Dispensed Lot Number Expiration Date [employer] 0.5 mL IM Left Deltoid 0.5 mL [id number] 11/07/25 [id number] [employer] 2 VIS Given Date VIS Provided VIS Publication Date 03/14/25 Single Vaccine 24 Eligibility Eligibility Date Funding Source Not [facility] Eligible 03/14/25 Private Results Reviewed Results Reviewed: Coding Level of Care Code Est Pt Level 5 (86938) Complex EM visit Add On G2211 Diagnoses Hospital discharge follow-up Z09 Influenza vaccination administered at current visit Z23 Splenic artery aneurysm I72.8 Coronary artery disease involving [place] coronary artery of [place] heart without angina pectoris I25.10 Associated angina: without angina Coronary Disease-Associated Artery/Lesion type: [place] artery [place] vs. transplanted heart: [place] heart Diverticulitis K57.92 Additional Codes SERGE-7 Assessment Billing - SERGE-7 Assessment Tool: SERGE-7 Assessment 15996 ([id number]) PHQ-9 - 61457 - PHQ-9 Billing: Yes ([id number]) Assessment & Plan Assessment & Plan (1) Hospital discharge follow-up: Code(s): Z09 - Encounter for follow-up examination after completed treatment for conditions other than malignant neoplasm (2) Influenza vaccination administered at current visit: Onset Date: ~03/14/25 Code(s): Z23 - Encounter for immunization Category: Medical (3) Splenic artery aneurysm: Comment: noted on 03/01/25 CT ABD [facility] 1.0 calcified Code(s): I72.8 - Aneurysm of other specified arteries Category: Medical (4) CAD (coronary artery disease): Onset Date: ~02/2025 Comment: noted on 03/01 CT ABD as mild Code(s): I25.10 - Atherosclerotic heart disease of [place] coronary artery without angina pectoris Category: Medical Qualifiers: Associated angina: without angina Coronary Disease-Associated Artery/Lesion type: [place] artery [place] vs. transplanted heart: [place] heart Qualified Code(s): I25.10 - Atherosclerotic heart disease of [place] coronary artery without angina pectoris (5) Diverticulitis: Code(s): K57.92 - Diverticulitis of intestine, part unspecified, without perforation or abscess without bleeding Category: Medical Plan . Orders: Orders 2 Complete Blood Count no Diff 04/10/25. - Encounter for general adult medical examination without abnormal findings Comprehensive Met. Panel 04/10/25. - Encounter for general adult medical examination without abnormal findings Hemoglobin A1c 04/10/25. - Encounter for general adult medical examination without abnormal findings Vitamin B12 and Folate 04/10/25. - Encounter for general adult medical examination without abnormal findings Vitamin D 25-OH Total 04/10/25 Z. - Encounter for general adult medical examination without abnormal findings Microalbumin, Random (w Creat) 04/10/25 Z. - Encounter for general adult medical examination without abnormal findings TSH reflex Free T4 04/10/25 Z00. - Encounter for general adult medical examination without abnormal findings Influenza [id number] Immunization Today Z23 - Encounter for immunization Medications: Discontinued 2 doxepin Take within 30 minutes of bedtime, avoid meals within 3 hours of use for improved effectiveness Discontinued Reason: Patient Completed Course 3 mg PO BEDTIME PRN 30 tabs 0RF sleep
[2025-03-14 13:54] VITALS: BP 132/70; PULSE 82; RESP 13; TEMP 36.2; O2SAT 99; BMI 21.5
== END 2025-03-14 15:37 | disposition home or self-care (01) ==
LOC: HO.HMCFM 13:37
PROVIDERS: PCP Nurse Practitioner Family; Visit Provider Nurse Practitioner Family
DX: Z09 Encounter for follow-up examination after completed treatment for conditions other than malignant neoplasm (principal); Z23 Encounter for immunization; I72.8 Aneurysm of other specified arteries; I25.10 Atherosclerotic heart disease of native coronary artery without angina pectoris; K57.92 Diverticulitis of intestine, part unspecified, without perforation or abscess without bleeding

== ENCOUNTER → 2025-03-14 13:35 | Outpatient (BNVA) | payer MEDICARE, OTHER, SELFPAY | PROVIDERS: PCP Nurse Practitioner Family; Visit Provider Nurse Practitioner Family | DX: Z09 Encounter for follow-up examination after completed treatment for conditions other than malignant neoplasm (principal); K57.92 Diverticulitis of intestine, part unspecified, without perforation or abscess without bleeding; I72.8 Aneurysm of other specified arteries; I25.10 Atherosclerotic heart disease of native coronary artery without angina pectoris; Z13.31 Encounter for screening for depression; Z13.39 Encounter for screening examination for other mental health and behavioral disorders; Z23 Encounter for immunization | CPT/HCPCS: 90471; 90656; 96127; 99212 ==